=== PATIENT | male | born 1975 | race Caucasian/White ===

== ENCOUNTER 2016-06-22 00:46 | Emergency (ER) | payer MEDICAID, OTHER ==
[~2016-06-22] VITALS: Ht 170.2 cm; Wt 94.0 kg
[~2016-06-22 00:46] MED LIST: CIPR500T4 PO; LORA10CA PO; MECL12.574 PO; METR500T14 PO; MYL80 PO; OMEP10CA4 PO; OMEP20CA16 PO; SENN-53 PO; SIME80TA53 PO; TRAM50TA2 PO
[2016-06-22 00:51] VITALS: Ht 170.2 cm; Wt 94.0 kg
[2016-06-22] MEDS ORDERED: SOD CHLORIDE 0.9% 1,000 ML IV STA (01:07)
[2016-06-22] MEDS ORDERED: ONDANSETRON 4 MG INJ IV STA (01:07)
[2016-06-22] MEDS ORDERED: morphine 4 MG/ML VIAL IV STA (01:07)
[2016-06-22 02:14] LABS: ADD SCAN DIFF NO
[2016-06-22 02:22] LABS: BASOPHIL # 0.1 10^3/ul (0.0-0.1); BASOPHILS % 0.5 % (0.0-2.0); EOSINOPHILS # 0.1 10^3/ul (0.0-0.5); EOSINOPHILS % 1.3 % (0.0-7.0); HEMOGLOBIN 15.2 g/dl (14.0-18.0); LYMPHOCYTES # 2.9 10^3/ul (0.8-2.9); LYMPHOCYTES % 29.2 % (15.0-51.0); MEAN CORPUSCULAR HEMOGLOBIN 28.1 pg (29.0-33.0); MEAN CORPUSCULAR HGB CONC 33.8 g/dl (32.0-37.0); MEAN CORPUSCULAR VOLUME 83.3 fl (82.0-101.0); MEAN PLATELET VOLUME 11.7 fl (7.4-10.4); MONOCYTE # 0.8 10^3/ul (0.3-0.9); MONOCYTES % 7.9 % (0.0-11.0); NEUTROPHILS % 60.7 % (39.0-77.0); PLATELET COUNT 187 10^3/UL (140-415); RED CELL DISTRIBUTION WIDTH 13.2 % (11.5-14.5); WHITE BLOOD COUNT 9.8 10^3/ul (4.8-10.8)
--- NOTE | 2016-06-22 02:22 | RADRPT ---
PROCEDURE: CT Abdomen and Pelvis without contrast. CLINICAL INDICATION: Abdominal pain TECHNIQUE: CT scan of the abdomen and pelvis without contrast was performed on a multidetector hig h-resolution CT scanner. The patient was scanned without intravenous contrast. Coronal and sagittal reformatted images were obtained from the axial source images. Images were reviewed on a high-resol [employer] PACS workstation. The total exam CTDI equals 16.57 mGy and the total exam DLP equals 1074.99 m Gy-cm. One or more the following dose reduction techniques were utilized: Automated exposure control, adjus tment of the mA/ or kV according to patient's size, or use of iterative reconstruction technique. COMPARISON: 01/17/2016 FINDINGS: CT abdomen: Minimal linear atelectasis/fibrosis at lung bases. Small calcified granuloma in left lower lung lobe . The heart size is normal, without pericardial thickening or effusion. The liver is normal in siz e and density without focal mass or intrahepatic biliary dilatation. The spleen is normal in size a nd homogeneous in density. Likely small hiatal hernia. The pancreas as visualized is normal. The g allbladder is contracted. There is no evidence of biliary dilatation. The adrenal glands are symme tric and normal. 2 mm nonobstructing calculus in mid right kidney. No abnormality is seen in the l eft kidney. The aorta is of normal caliber. There is no retroperitoneal lymphadenopathy. The lance hepatis r egion is clear. Diverticula in sigmoid, descending, transverse, ascending colon. CT pelvis: The small bowel loops situated within the pelvis are unremarkable. The pelvic organs are normal. T he pelvic sidewalls and inguinal regions are clear. Diverticula in sigmoid colon. There is wall th ickening in an approximate 5 cm segment of the proximal to mid sigmoid colon with soft tissue strand ing in the adjacent fat consistent with acute diverticulitis. No pericolonic abscess or extralumina l air is seen. No mass, lymphadenopathy, or free fluid is seen. There is no evidence of acute appen dicitis. Small scattered likely bone islands again seen. IMPRESSION: Colonic diverticulosis. Acute diverticulitis in sigmoid colon again seen not as severe as on the pr evious study. Likely small hiatal hernia again seen. Contracted gallbladder not seen on previous st udy. 2 mm nonobstructing calculus in mid right kidney again seen. Please see above. RPTAT: HJES .Ashish Cabral MD, MD Date Time Electronically viewed and signed by .Ashish Cabral MD, on 06/22/2016 02:22 .S/
[2016-06-22 02:34] LABS: ADD UMIC NO; URINE BILIRUBIN (Dip) NEGATIVE (NEGATIVE); URINE BLOOD (Dip) NEGATIVE (NEGATIVE); URINE COLOR LT. YELLOW (YELLOW); URINE GLUCOSE (Dip) NEGATIVE (NEGATIVE); URINE KETONES (Dip) NEGATIVE (NEGATIVE); URINE LEUKOCYTE ESTERASE (Dip) NEGATIVE (NEGATIVE); URINE NITRITE (Dip) NEGATIVE (NEGATIVE); URINE TOTAL PROTEIN (Dip) NEGATIVE (NEGATIVE); URINE UROBILINOGEN (Dip) 0.2 E.U./dL (0.1-1.0)
[2016-06-22 02:38] LABS: ALBUMIN 4.1 g/dl (3.3-4.9)
[2016-06-22 02:39] LABS: POTASSIUM 3.8 mmol/L (3.5-5.1)
[2016-06-22 02:41] LABS: BILIRUBIN,INDIRECT 0.2 mg/dl (0-1.1); BILIRUBIN,TOTAL 0.2 mg/dl (0.2-1.3); CREATININE 1.03 mg/dl (0.61-1.24)
[2016-06-22 02:42] LABS: ALBUMIN/GLOBULIN RATIO 1.24; TOTAL PROTEIN 7.4 g/dl (6.1-8.1)
--- NOTE | 2016-06-22 04:41 | ERD ---
ER Documentation Chief Complaint Date/Time DATE: 06/22/16 TIME: 04:40 Chief Complaint llq abd pain x 2 days HPI This is a 40-year-old male, left lower quadrant abdominal pain for 2 days. Patient has history of diverticulitis. No fevers no chills. 2 episodes of diarrhea. No other current complaints. Pain is mild to moderate intensity with no exacerbating or alleviating factors. ROS All systems reviewed and are negative except as per history of present illness. Medications Home Meds Active Scripts Meclizine Hcl* (Antivert*) 12.5 Mg Tab, 12.5 MG PO Q6H Y for DIZZINESS, #20 TAB Prov:PROJOY CANTRELLC 02/20/16 Omeprazole* (Omeprazole*) 20 Mg Capsule.dr, 20 MG PO DAILY, #30 Prov:PROJOY CANTRELLC 02/20/16 Simethicone (GAS RELIEF) 80 Mg Tab.chew, 80 MG PO every 4 hours, #30 TAB.CHEW Prov:JOY MCNEAL PA-C 02/20/16 Sennosides* (Senna Lax*) 8.6 Mg Tablet, 1 TAB PO BID, #30 TAB Prov:PROJOY CANTRELLC 02/20/16 Simethicone* (Mylicon*) 80 Mg Tab, 80 MG PO Q6H Y for DISTENSION/GAS/BLOATING, # 50 TAB Prov:YUMIKO NELSON 01/19/16 Sennosides* (Senna Lax*) 8.6 Mg Tablet, 1 TAB PO Q12H Y for CONSTIPATION, #30 TAB Prov:YUMIKO NELSON 01/19/16 Metronidazole* (Metronidazole*) 500 Mg Tablet, 500 MG PO Q8, #30 TAB Prov:REGIDOYUMIKO Delgado 01/19/16 Ciprofloxacin Hcl* (Ciprofloxacin Hcl*) 500 Mg Tablet, 500 MG PO BID, #20 TAB Prov:REGYUMIKO RODAS 01/19/16 Omeprazole* (Omeprazole*) 10 Mg Capsule.dr, 10 MG PO DAILY, #30 CAP Prov:REGIDOYUMIKO Delgado 01/19/16 Tramadol HCl (Tramadol HCl) 50 Mg Tablet, 50 MG PO Q4 Y for PAIN, #20 TAB Prov:EDER ESPINAL 01/01/16 Reported Medications Loratadine* (Claritin*) 10 Mg Capsule, 10 MG PO DAILY, CAP 12/06/15 Allergies Allergies: Coded Allergies: No Known Allergy (Unverified , 01/17/16) PMhx/Soc Medical and Surgical Hx: pt denies Surgical Hx History of Surgery: No Anesthesia Reaction: No Hx Neurological Disorder: No Hx Respiratory Disorders: No Hx Cardiac Disorders: No Hx Psychiatric Problems: No Hx Miscellaneous Medical Probl: Yes (Constipation, Gastritis, colitis) Hx Alcohol Use: No Hx Substance Use: No Hx Tobacco Use: No Smoking Status: Former smoker Physical Exam Vitals Vital Signs Date Time Temp Pulse Resp B/P Pulse Ox O2 Delivery O2 Flow Rate FiO2 06/22/16 03:33 97.4 65 17 142/89 100 Room Air 06/22/16 00:51 97.3 73 17 164/105 100 Physical Exam Const: [] Head: Atraumatic Eyes: Normal Conjunctiva ENT: Normal External Ears, Nose and Mouth. Neck: Full range of motion..~ No meningismus. Resp: Clear to auscultation bilaterally Cardio: Regular rate and rhythm, no murmurs Abd: Soft, non tender, non distended. Normal bowel sounds Skin: No petechiae or rashes Back: No midline or flank tenderness Ext: No cyanosis, or edema Neur: Awake and alert Psych: Normal Mood and Affect Result Diagram: 06/22/16 0120 06/22/16 0120 Results 24 hrs Laboratory Tests Test 06/22/16 01:20 White Blood Count 9.810^3/ul Red Blood Count 5.4010^6/ul Hemoglobin 15.2g/dl Hematocrit 45.0% Mean Corpuscular Volume 83.3fl Mean Corpuscular Hemoglobin 28.1pg Mean Corpuscular Hemoglobin Concent 33.8g/dl Red Cell Distribution Width 13.2% Platelet Count 74116^3/UL Mean Platelet Volume 11.7fl Neutrophils % 60.7% Lymphocytes % 29.2% Monocytes % 7.9% Eosinophils % 1.3% Basophils % 0.5% Nucleated Red Blood Cells % 0.0/100WBC Neutrophils # 6.010^3/ul Lymphocytes # 2.910^3/ul Monocytes # 0.810^3/ul Eosinophils # 0.110^3/ul Basophils # 0.110^3/ul Nucleated Red Blood Cells # 0.010^3/ul Urine Color LT. YELLOW Urine Clarity CLEAR Urine pH 6.0 Urine Specific [place] 1.020 Urine Ketones NEGATIVE Urine Nitrite NEGATIVE Urine Bilirubin NEGATIVE Urine Urobilinogen 0.2 E.U./dL Urine Leukocyte Esterase NEGATIVE Urine Hemoglobin NEGATIVE Urine Glucose NEGATIVE% Urine Total Protein NEGATIVE Sodium Level 141mmol/L Potassium Level 3.8mmol/L Chloride Level 101mmol/L Carbon Dioxide Level 25mmol/L Anion Gap 19 Blood Urea Nitrogen 16mg/dl Creatinine 1.03mg/dl Glucose Level 99mg/dl Calcium Level 9.0mg/dl Total Bilirubin 0.2mg/dl Direct Bilirubin 0.00mg/dl Indirect Bilirubin 0.2mg/dl Aspartate Amino Transf (AST/SGOT) 21IU/L Alanine Aminotransferase (ALT/SGPT) 44IU/L Alkaline Phosphatase 75IU/L Total Protein 7.4g/dl Albumin 4.1g/dl Globulin 3.30g/dl Albumin/Globulin Ratio 1.24 Lipase 36U/L Current Medications Medications (Trade) Dose Ordered Sig/Vickie Route PRN Reason Start Time Stop Time Status Last Admin Dose Admin Sodium Chloride (NS) 1,000 ml @ 1,000 mls/hr Q1H STAT IV 06/22/16 01:07 06/22/16 02:06 DC 06/22/16 01:21 Morphine Sulfate (morphine) 4 mg ONCE STAT IV 06/22/16 01:07 06/22/16 01:08 DC 06/22/16 01:21 Ondansetron HCl (Zofran Inj) 4 mg ONCE STAT IV 06/22/16 01:07 06/22/16 01:08 DC 06/22/16 01:21 Procedures/MDM Medical decision-makin male evidence of sigmoid diverticulitis. No obvious perforation. At this point pain is resolved and the patient is well- appearing. Trial of outpatient management will start with Cipro and Flagyl. Follow-up in 8 hours for serial abdominal exams. Return sooner for worsening symptoms. Departure Diagnosis: Primary Impression: Abdominal pain Abdominal location: unspecified location Qualified Code: R10.9 - Abdominal pain, unspecified location Additional Impression: Diverticulitis Diverticulitis site: small intestine Diverticulitis bleeding: without bleeding Diverticulitis complication: without perforation or abscess Qualified Code: K57.12 - Diverticulitis of small intestine without perforation or abscess without bleeding Condition: Stable EDER ESPINAL Jun 22, 2016 04:41
[2016-06-22] MEDS ORDERED: METR500T PO (04:42)
[2016-06-22] MEDS ORDERED: CIPR500T4 PO (04:42)
[2016-06-22 04:54] VITALS: BP 133/82; PULSE 61; RESP 17; TEMP 97.8
== END 2016-06-22 05:32 | disposition home or self-care (01) ==
LOC: E/R 00:46
DX: R10.32 Left lower quadrant pain (principal); K57.12 Diverticulitis of small intestine without perforation or abscess without bleeding; R11.0 Nausea; R40.2142 Coma scale, eyes open, spontaneous, at arrival to emergency department; R40.2252 Coma scale, best verbal response, oriented, at arrival to emergency department; R40.2362 Coma scale, best motor response, obeys commands, at arrival to emergency department
CPT/HCPCS: 74176; 80053; 81003; 83690; 85025; J2270; J2405; J7030; 36415; 96374; 96375

== ENCOUNTER 2016-07-19 04:54 | Emergency (ER) | payer OTHER ==
[~2016-07-19] VITALS: Ht 172.7 cm; Wt 93.0 kg
[~2016-07-19 04:54] MED LIST changes: +METR500T PO
[2016-07-19 04:57] VITALS: Ht 172.7 cm; Wt 93.0 kg
[2016-07-19] MEDS ORDERED: EPINEPHrine 1 MG INJ SC STA (05:08)
[2016-07-19] MEDS ORDERED: METHYLPREDNISOLONE 125 MG INJ ONE (05:11)
[2016-07-19] MEDS ORDERED: DIPHENHYDRAMINE 50 MG INJ ONE (05:11)
[2016-07-19] MEDS ORDERED: FAMOTIDINE 20 MG INJ ONE (05:12)
[2016-07-19] MEDS ORDERED: EPINEPHrine 1 MG INJ ONE (05:12)
[2016-07-19] MEDS ORDERED: FAMOTIDINE 20 MG TAB PO ONE (05:30)
[2016-07-19] MEDS ORDERED: DIPHENHYDRAMINE 50 MG INJ IV ONE (05:30)
[2016-07-19] MEDS ORDERED: METHYLPREDNISOLONE 125 MG INJ IV ONE (05:30)
[2016-07-19] MEDS ORDERED: EPIN0.3P4 INJ (05:53)
[2016-07-19] MEDS ORDERED: BEN25 PO (05:53)
[2016-07-19] MEDS ORDERED: FAMO-18 PO (05:53)
[2016-07-19] MEDS ORDERED: PRED20TA PO (05:53)
--- NOTE | 2016-07-19 06:04 | ERD ---
ER Documentation Chief Complaint Date/Time DATE: 07/19/16 TIME: 05:59 Chief Complaint Allergic reaction Hives and feels like SOB HPI This 40-year-old male presents emergency room with whole-body hives and the feeling that his throat is closing. Less than 2 hours ago he ate shrimp which she does not usually eat. Feels very itchy all over and feels short of breath in the sense that he feels like his throat is closing. This is never happened to him before. ROS All systems reviewed and are negative except as per history of present illness. Medications Home Meds Active Scripts Prednisone* (Prednisone*) 20 Mg Tab, 40 MG PO DAILY for 4 Days, TAB Prov:NILTON SCALES 07/19/16 Famotidine* (Pepcid*) 20 Mg Tablet, 20 MG PO BID for 4 Days, TAB Prov:NILTON SCALES 07/19/16 Diphenhydramine Hcl* (Benadryl*) 25 Mg Cap, 25 MG PO Q8 Y for ITCHING/RASH, #20 TAB Prov:NILTON SCALES 07/19/16 Epinephrine (Epipen 2-Candido) 0.3 Mg/0.3 Ml Pen.injctr, 1 EA INJ ONCE Y for ALLERGIC REACTION, #1 EA Prov:NILTON SCALES 07/19/16 Metronidazole* (Flagyl*) 500 Mg Tablet, 500 MG PO TID for 7 Days, TAB Prov:EDER ESPINAL. 06/22/16 Ciprofloxacin Hcl* (Ciprofloxacin Hcl*) 500 Mg Tablet, 500 MG PO BID for 7 Days , TAB Prov:EDER ESPINAL 06/22/16 Meclizine Hcl* (Antivert*) 12.5 Mg Tab, 12.5 MG PO Q6H Y for DIZZINESS, #20 TAB Prov:JOY MCNEAL PA-C 02/20/16 Omeprazole* (Omeprazole*) 20 Mg Capsule.dr, 20 MG PO DAILY, #30 Prov:JOY MCNEAL PA-C 02/20/16 Simethicone (GAS RELIEF) 80 Mg Tab.chew, 80 MG PO every 4 hours, #30 TAB.CHEW Prov:JOY MCNEAL PA-C 02/20/16 Sennosides* (Senna Lax*) 8.6 Mg Tablet, 1 TAB PO BID, #30 TAB Prov:JOY MCNEAL PA-C 02/20/16 Simethicone* (Mylicon*) 80 Mg Tab, 80 MG PO Q6H Y for DISTENSION/GAS/BLOATING, # 50 TAB Prov:REGIDORYUMIKO 01/19/16 Sennosides* (Senna Lax*) 8.6 Mg Tablet, 1 TAB PO Q12H Y for CONSTIPATION, #30 TAB Prov[facility] 01/19/16 Metronidazole* (Metronidazole*) 500 Mg Tablet, 500 MG PO Q8, #30 TAB Prov:[facility] 01/19/16 Ciprofloxacin Hcl* (Ciprofloxacin Hcl*) 500 Mg Tablet, 500 MG PO BID, #20 TAB Prov:[facility] 01/19/16 Omeprazole* (Omeprazole*) 10 Mg Capsule.dr, 10 MG PO DAILY, #30 CAP Prov:[facility] 01/19/16 Tramadol HCl (Tramadol HCl) 50 Mg Tablet, 50 MG PO Q4 Y for PAIN, #20 TAB Prov:EDER ESPINAL 01/01/16 Reported Medications Loratadine* (Claritin*) 10 Mg Capsule, 10 MG PO DAILY, CAP 12/06/15 Allergies Allergies: Coded Allergies: No Known Allergy (Unverified , 01/17/16) PMhx/Soc History of Surgery: No Anesthesia Reaction: No Hx Neurological Disorder: No Hx Respiratory Disorders: No Hx Cardiac Disorders: No Hx Psychiatric Problems: No Hx Miscellaneous Medical Probl: Yes (Constipation, Gastritis, colitis) Hx Alcohol Use: No Hx Substance Use: No Hx Tobacco Use: No Smoking Status: Never smoker Physical Exam Vitals Vital Signs Date Time Temp Pulse Resp B/P Pulse Ox O2 Delivery O2 Flow Rate FiO2 07/19/16 04:57 98.1 76 22 140/102 99 Physical Exam Const: [] Moderate distress, appears very comfortable Head: Atraumatic Eyes: Normal Conjunctiva ENT: Normal External Ears, Nose and Mouth. Bilateral tonsillar swelling Neck: Full range of motion..~ No meningismus. No visual swelling Resp: Clear to auscultation bilaterally, no wheezes Cardio: Regular rate and rhythm, no murmurs Abd: Soft, non tender, non distended. Normal bowel sounds Skin: Diffuse hives Back: No midline or flank tenderness Ext: No cyanosis, or edema Neur: Awake and alert and oriented 3, no focal deficit Psych: Anxious Results 24 hrs Current Medications Medications (Trade) Dose Ordered Sig/Vickie Route PRN Reason Start Time Stop Time Status Last Admin Dose Admin Epinephrine (EPINEPHrine) 0.3 mg ONCE STAT SC 07/19/16 05:08 07/19/16 05:11 DC 07/19/16 05:14 Diphenhydramine HCl (Benadryl) 50 mg ONCE ONCE IV 07/19/16 05:30 07/19/16 05:31 DC 07/19/16 05:13 Famotidine (Pepcid) 40 mg ONCE ONCE PO 07/19/16 05:30 07/19/16 05:31 DC 07/19/16 05:25 Methylprednisolone Sodium Succinate (Solu-Medrol) 125 mg ONCE ONCE IV 07/19/16 05:30 07/19/16 05:31 DC 07/19/16 05:13 Procedures/MDM Acute anaphylaxis secondary to shrimp allergy. He was given EpiPen, placed on quality assurance monitor chassis with pulse ox,, IV was immediately started he was given 50 mg of IV Benadryl as well as 40 mg of p.o. Pepcid and 125 mg of Solu-Medrol. Within 30 minutes patient's hives disappeared completely and he felt like his throat was no longer closing and that he could breathe normally. He was observed for. An additional hour and 30 minutes. He still felt normal once again. I doubt hereditary angioedema. I think at this point will be safe to discharge him he states he can easily come back to the hospital if he has return of symptoms. Also discharging with 2 EpiPen's in addition to an adrenal , Pepcid and prednisone for 4 days. Critical care time 32 minutes: This includes multiple visits the patient's room and treatment of acute anaphylaxis, use of EpiPen, consistent monitoring, IV Benadryl and Solu-Medrol, consideration of invasive procedures such as preemptive intubation, chart reviewed, discussion with patient. This does not include any billable procedures Departure Diagnosis: Primary Impression: Acute anaphylaxis Additional Impression: Shrimp allergy Condition: Stable Patient Instructions: Anaphylaxis, General, Food Allergy Referrals: [facility] YOU HAVE RECEIVED A MEDICAL SCREENING EXAM AND THE RESULTS INDICATE THAT YOU DO NOT HAVE A CONDITION THAT REQUIRES URGENT TREATMENT IN THE EMERGENCY DEPARTMENT. FURTHER EVALUATION AND TREATMENT OF YOUR CONDITION CAN WAIT UNTIL YOU ARE SEEN IN YOUR DOCTORS OFFICE WITHIN THE NEXT 1-2 DAYS. IT IS YOUR RESPONSIBILITY TO MAKE AN APPOINTMENT FOR FOLOW-UP CARE. IF YOU HAVE A PRIMARY DOCTOR --you should call your primary doctor and schedule an appointment IF YOU DO NOT HAVE A PRIMARY DOCTOR YOU CAN CALL OUR PHYSICIAN REFERRAL HOTLINE AT IF YOU CAN NOT AFFORD TO SEE A PHYSICIAN YOU CAN CHOSE FROM THE FOLLOWING [facility] [address] [facility] [address] [facility] [address] [facility] [address] [facility]. [facility] [address] [facility]. [facility]. [address] Additional Instructions: Call your primary care doctor TOMORROW for an appointment during the next 2-3 days.See the doctor sooner or return here if your condition worsens before your appointment time. NILTON SCALES DO July 19, 2016 06:04
[2016-07-19 07:15] VITALS: BP 119/84; PULSE 80; RESP 20; TEMP 98.5
== END 2016-07-19 07:16 | disposition home or self-care (01) ==
LOC: E/R 04:54
DX: T61.781A Other shellfish poisoning, accidental (unintentional), initial encounter (principal)
CPT/HCPCS: J0171; J1200; J2930; Z7610; 96372; 96374; 96375

== ENCOUNTER 2016-08-30 22:46 | Emergency (ER) | END 2016-08-31 04:39 | disposition home or self-care (01) | DX: K57.12 Diverticulitis of small intestine without perforation or abscess without bleeding (principal) | CPT/HCPCS: 36415; 74177; 80053; 81003; 83690; 85025; J7030; Q9967; Z7502; Z7610 ==

== ENCOUNTER 2017-05-13 11:36 | Emergency (ER) | END 2017-05-13 19:24 | disposition home or self-care (01) ==

== ENCOUNTER 2017-06-26 08:08 | Emergency (ER) | END 2017-06-26 10:06 | disposition home or self-care (01) ==

== ENCOUNTER 2017-08-02 21:03 | Emergency (ER) | END 2017-08-02 22:54 | disposition home or self-care (01) ==

== ENCOUNTER 2017-09-09 21:40 | Emergency (ER) | END 2017-09-10 05:04 | disposition home or self-care (01) ==

== ENCOUNTER 2018-05-20 05:12 | Emergency (ER) | payer SELFPAY ==
[~2018-05-20 05:12] MED LIST changes: +ACET500C5 PO; +DOCU-144 PO; +EPIN0.3P4 INJ; +FAMO-96 PO; +IBUP800T48 PO; -LORA10CA PO; -MECL12.574 PO; -METR500T14 PO; -MYL80 PO; -OMEP10CA4 PO; +ONDA4TAB14 PO; +PRED20TA PO; -SENN-53 PO; -SIME80TA53 PO
[2018-05-20] MEDS ORDERED: CIPR500T4 PO (12:22)
[2018-05-20] MEDS ORDERED: METR500T PO (12:22)
== END 2018-05-20 06:31 | disposition left against medical advice (07) ==
LOC: E/R 05:12
DX: Z53.21 Procedure and treatment not carried out due to patient leaving prior to being seen by health care provider (principal)

== ENCOUNTER 2018-05-20 11:21 | Emergency (ER) | payer OTHER ==
[~2018-05-20] VITALS: Wt 92.6 kg
[2018-05-20 11:23] VITALS: BP 145/99; PULSE 83; RESP 17
[2018-05-20] MEDS ORDERED: METR500T PO (12:22)
[2018-05-20] MEDS ORDERED: CIPR500T4 PO (12:22)
--- NOTE | 2018-05-20 12:27 | ERD ---
ER Documentation Chief Complaint Chief Complaint PT HERE FOR MED REFILL FOR ABX HPI 42-year-old male presenting for medication refill. Patient states he has a long history of diverticulitis. He states that he has been told if he starts feeling the pain in the left lower quadrant told to come to the ER for antibiotics to avoid worsening symptoms. Denies other medical problems. NKDA. Surgical history denies. Social history denies ROS All systems reviewed and are negative except as per history of present illness. Medications Home Meds Active Scripts Metronidazole* (Flagyl*) 500 Mg Tablet, 500 MG PO TID for 7 Days, TAB Prov:ANA VELIZ PA-C 05/20/18 Ciprofloxacin Hcl* (Ciprofloxacin Hcl*) 500 Mg Tablet, 500 MG PO BID for 7 Days, TAB Prov:ANA VELIZ PA-C 05/20/18 Tramadol HCl (Tramadol HCl) 50 Mg Tablet, 50 MG PO Q4 PRN for PAIN, #20 TAB Prov:VICKIE HUGHES 09/10/17 Famotidine* (Pepcid*) 20 Mg Tablet, 20 MG PO DAILY for 30 Days, TAB Prov:VICKIE HUGHES 09/10/17 Acetaminophen* (Tylophen*) 500 Mg Capsule, 1 CAP PO Q6H PRN for PAIN AND OR ELEVATED TEMP, #20 CAP Prov:VICKIE HUGHES 09/10/17 Prednisone* (Prednisone*) 20 Mg Tab, 40 MG PO DAILY for 4 Days, TAB Prov:JO HARLEY MD 08/02/17 Epinephrine (Epipen 2-Candido) 0.3 Mg/0.3 Ml Pen.injctr, 1 EA INJ ONCE PRN for ALLERGIC REACTION, #2 EA Prov:JO HARLEY MD 08/02/17 Ondansetron (Ondansetron Odt) 4 Mg Tab.rapdis, 4 MG PO Q6H PRN for NAUSEA AND/OR VOMITING, #10 TAB Prov:MANDEEP SAENZ PA-C 06/26/17 Docusate Sodium* (Colace*) 100 Mg Capsule, 100 MG PO TID, #30 CAP Prov:MANDEEP SAENZ PA-C 06/26/17 Omeprazole* (Omeprazole*) 20 Mg Capsule.dr, 20 MG PO BID, #20 Prov:MANDEEP SAENZ Lex KLINE 06/26/17 Metronidazole* (Flagyl*) 500 Mg Tablet, 500 MG PO TID for 7 Days, TAB Prov:MANDEEP SAENZ Lex KLINE 06/26/17 Ciprofloxacin Hcl* (Ciprofloxacin Hcl*) 500 Mg Tablet, 500 MG PO BID for 7 Days, TAB Prov:MANDEEP SAENZ Lex KLINE 06/26/17 Tramadol HCl (Tramadol HCl) 50 Mg Tablet, 50 MG PO Q6, #40 TAB Prov:BAILEY SILVASTBLAKES Val. DO 05/13/17 Ibuprofen* (Motrin*) 800 Mg Tab, 800 MG PO Q6H PRN for PAIN AND OR ELEVATED TEMP, #30 TAB Prov:BAILEY SILVASTBLAKES ATea DO 05/13/17 Allergies Allergies: Uncoded Allergies: SHELLFISH (Allergy, Severe, 06/26/17) shellfish,lobsters PMhx/Soc History of Surgery: No Anesthesia Reaction: No Hx Neurological Disorder: No Hx Respiratory Disorders: No Hx Cardiac Disorders: No Hx Psychiatric Problems: No Hx Miscellaneous Medical Probl: Yes (diverticulitis) Hx Alcohol Use: No Hx Substance Use: No Hx Tobacco Use: No FmHx Family History: No diabetes, No coronary disease, No other Physical Exam Vitals Vital Signs Date Temp Pulse Resp B/P (MAP) Pulse Ox O2 O2 Flow FiO2 Time Delivery Rate 05/20/18 97.4 83 17 145/99 98 11:23 (114) Physical Exam GENERAL: The patient is well-appearing, well-nourished, in no acute distress CHEST: Clear to auscultation bilaterally. There are no rales, wheezes or rhonchi. HEART: Regular rate and rhythm. No murmurs, clicks, rubs or gallops. No S3 or S4. ABDOMEN:Soft, tender palpation left lower quadrant with no rebound tenderness and nondistended. Good bowel sounds. No rebound or guarding. No gross peritonitis. No gross organomegaly or masses. Procedures/MDM MDM: 42-year-old male presenting with pain to left lower quadrant. Patient has a history of diverticulitis. I will treat with antibiotics with the strict understanding that if patient's symptoms worsen or change to come to the ER for imaging. Patient is told if symptoms change or worsen to return sooner. Patient's vitals are stable. All questions answered at discharge Departure Diagnosis: Primary Impression: Encounter for medication refill Condition: Stable Patient Instructions: Taking Medicine Safely Referrals: [facility] (PCP) Additional Instructions: FOLLOW UP WITH YOUR PRIMARY CARE PHYSICIAN TOMORROW.Return to this facility if you are not improving as expected. ANA VELIZ PA-C May 20, 2018 12:27
== END 2018-05-20 12:32 | disposition home or self-care (01) ==
LOC: FTE 11:21
DX: Z76.0 Encounter for issue of repeat prescription (principal)
CPT/HCPCS: 99281

== ENCOUNTER 2018-07-22 02:25 | Emergency (ER) | payer OTHER ==
[~2018-07-22] VITALS: Wt 90.9 kg
[2018-07-22] MEDS ORDERED: morphine 4 MG/ML VIAL IV STA (02:43)
[2018-07-22] MEDS ORDERED: ONDANSETRON 4 MG INJ IV STA (02:43)
--- NOTE | 2018-07-22 05:02 | ERD ---
ER Documentation Chief Complaint Chief Complaint COUGH, AP X'S 2 DAYS; HX DIVERTICULITIS HPI This is a 42-year-old male presents for evaluation of cough x2 days, patient endorses URI-like symptoms. Additionally has a history of recurrent diverticulitis, and he has been having pain since Wednesday, which is now about 4 days. He has had nausea but no vomiting. His pain feels similar to prior episodes where he has had diverticulitis. He has no chest pain or shortness of breath. ROS All systems reviewed and are negative except as per history of present illness. Medications Home Meds Active Scripts Metronidazole* (Flagyl*) 500 Mg Tablet, 500 MG PO TID for 10 Days, TAB Prov:EMERALD TEAGUE MD 07/22/18 Amoxicillin/Potassium Clav (Amox-Clav 875-125 mg Tablet) 875-125 mg Tab, 1 TAB PO BID for 10 Days, #20 TAB Prov:EMERALD TEAGUE MD 07/22/18 Omeprazole* (Omeprazole*) 20 Mg Capsule.dr, 20 MG PO BID, #20 Prov:MANDEEP SAENZ PA-C 06/26/17 Discontinued Scripts Metronidazole* (Flagyl*) 500 Mg Tablet, 500 MG PO TID for 7 Days, TAB Prov:ANA VELIZ PA-C 05/20/18 Ciprofloxacin Hcl* (Ciprofloxacin Hcl*) 500 Mg Tablet, 500 MG PO BID for 7 Days, TAB Prov:ANA VELIZ PA-C 05/20/18 Tramadol HCl (Tramadol HCl) 50 Mg Tablet, 50 MG PO Q4 PRN for PAIN, #20 TAB Prov:VICKIE HUGHES 09/10/17 Famotidine* (Pepcid*) 20 Mg Tablet, 20 MG PO DAILY for 30 Days, TAB Prov:VICKIE HUGHES 09/10/17 Acetaminophen* (Tylophen*) 500 Mg Capsule, 1 CAP PO Q6H PRN for PAIN AND OR ELEVATED TEMP, #20 CAP Prov:VICKIE HUGHES 09/10/17 Prednisone* (Prednisone*) 20 Mg Tab, 40 MG PO DAILY for 4 Days, TAB Prov:JO HARLEY MD 08/02/17 Epinephrine (Epipen 2-Candido) 0.3 Mg/0.3 Ml Pen.injctr, 1 EA INJ ONCE PRN for ALLERGIC REACTION, #2 EA Prov:JO HARLEY MD 08/02/17 Ondansetron (Ondansetron Odt) 4 Mg Tab.rapdis, 4 MG PO Q6H PRN for NAUSEA AND/OR VOMITING, #10 TAB Prov:MANDEEP SAENZ PA-C 06/26/17 Docusate Sodium* (Colace*) 100 Mg Capsule, 100 MG PO TID, #30 CAP Prov:MANDEEP SAENZ PA-C 06/26/17 Metronidazole* (Flagyl*) 500 Mg Tablet, 500 MG PO TID for 7 Days, TAB Prov:MANDEEP SAENZ PA-C 06/26/17 Ciprofloxacin Hcl* (Ciprofloxacin Hcl*) 500 Mg Tablet, 500 MG PO BID for 7 Days, TAB Prov:MANDEEP SAENZ PA-C 06/26/17 Tramadol HCl (Tramadol HCl) 50 Mg Tablet, 50 MG PO Q6, #40 TAB Prov:BAILEY SILVASTBLAKES A. DO 05/13/17 Ibuprofen* (Motrin*) 800 Mg Tab, 800 MG PO Q6H PRN for PAIN AND OR ELEVATED TEMP, #30 TAB Prov:LEKKOS,APOSTOLOS A. DO 05/13/17 Allergies Allergies: Coded Allergies: shellfish derived (Verified Allergy, Unknown, 07/22/18) PMhx/Soc Medical and Surgical Hx: pt denies Surgical Hx History of Surgery: No Anesthesia Reaction: No Hx Neurological Disorder: No Hx Respiratory Disorders: No Hx Cardiac Disorders: No Hx Psychiatric Problems: No Hx Miscellaneous Medical Probl: Yes (diverticulitis, gastritis) Hx Alcohol Use: No Hx Substance Use: No Hx Tobacco Use: No Smoking Status: Never smoker Physical Exam Vitals Vital Signs Date Temp Pulse Resp B/P (MAP) Pulse Ox O2 O2 Flow FiO2 Time Delivery Rate 07/22/18 86 15 114/84 99 Room Air 04:50 (94) 07/22/18 100.0 93 18 137/92 99 02:27 (107) Physical Exam Const: No acute distress Head: Atraumatic Eyes: Normal Conjunctiva ENT: Normal External Ears, left TM is clear, no erythema or bulging nose and Mouth. Oropharynx is injected, no exudates Neck: Full range of motion. No meningismus. Resp: Clear to auscultation bilaterally Cardio: Regular rate and rhythm, no murmurs Abd: Soft, non tender, non distended. Normal bowel sounds Skin: No petechiae or rashes Back: No midline or flank tenderness Ext: No cyanosis, or edema Neur: Awake and alert Psych: Normal Mood and Affect Result Diagram: 07/22/18 0258 07/22/18 0258 Results 24 hrs Laboratory Tests Test 07/22/18 02:58 White Blood Count 8.8 10^3/ul Red Blood Count 5.18 10^6/ul Hemoglobin 14.7 g/dl Hematocrit 43.3 % Mean Corpuscular Volume 83.6 fl Mean Corpuscular Hemoglobin 28.4 pg Mean Corpuscular Hemoglobin Concent 33.9 g/dl Red Cell Distribution Width 13.1 % Platelet Count 176 10^3/UL Mean Platelet Volume 11.1 fl Immature Granulocytes % 0.300 % Neutrophils % 63.9 % Lymphocytes % 22.7 % Monocytes % 11.9 % Eosinophils % 0.7 % Basophils % 0.5 % Nucleated Red Blood Cells % 0.0 /100WBC Immature Granulocytes # 0.030 10^3/ul Neutrophils # 5.6 10^3/ul Lymphocytes # 2.0 10^3/ul Monocytes # 1.0 10^3/ul Eosinophils # 0.1 10^3/ul Basophils # 0.0 10^3/ul Nucleated Red Blood Cells # 0.0 10^3/ul Urine Color YELLOW Urine Clarity CLEAR Urine pH 6.0 Urine Specific [place] 1.017 Urine Ketones NEGATIVE mg/dL Urine Nitrite NEGATIVE mg/dL Urine Bilirubin NEGATIVE mg/dL Urine Urobilinogen NEGATIVE mg/dL Urine Leukocyte Esterase TRACE Laureen/ul Urine Microscopic RBC 0 /HPF Urine Microscopic WBC 0 /HPF Urine Bacteria FEW /HPF Urine Hemoglobin NEGATIVE mg/dL Urine Glucose NEGATIVE mg/dL Urine Total Protein NEGATIVE mg/dl Sodium Level 142 mmol/L Potassium Level 3.8 mmol/L Chloride Level 105 mmol/L Carbon Dioxide Level 29 mmol/L Anion Gap 8 Blood Urea Nitrogen 19 mg/dl Creatinine 1.12 mg/dl Est Glomerular Filtrat Rate mL/min > 60 mL/min Glucose Level 109 mg/dl Calcium Level 9.1 mg/dl Total Bilirubin 0.4 mg/dl Direct Bilirubin 0.00 mg/dl Indirect Bilirubin 0.4 mg/dl Aspartate Amino Transf (AST/SGOT) 27 IU/L Alanine Aminotransferase (ALT/SGPT) 37 IU/L Alkaline Phosphatase 89 IU/L Total Protein 7.8 g/dl Albumin 4.2 g/dl Globulin 3.60 g/dl Albumin/Globulin Ratio 1.16 Lipase 40 U/L Current Medications Medications Dose Sig/Vickie Start Time Status Last (Trade) Ordered Route PRN Stop Time Admin Dose Reason Admin Morphine 4 mg ONCE STAT 07/22/18 DC Sulfate IV 02:43 (morphine) 07/22/18 02:45 Ondansetron 4 mg ONCE STAT 07/22/18 DC HCl (Zofran IV 02:43 Inj) 07/22/18 02:45 Procedures/MDM 42-year-old male presents for evaluation of abdominal pain, with prior history of diverticulitis. His CT abdomen pelvis showed sigmoid diverticulitis, patient stated that his pain felt much better, initially being about a 6, and improving 2 out of 10, and wished to be discharged home. He stated that he felt very comfortable being treated as an outpatient, as this is how he has usually manages symptoms. I provided him a prescription for Augmentin and Flagyl. Additionally he also had URI-like symptoms, which are most likely unrelated to his diverticulitis, strict return precautions were given to return for any p.o. intolerance, vomiting, or any other worsening symptoms. At discharge patient was in no distress. Departure Diagnosis: Primary Impression: Abdominal pain Abdominal location: unspecified location Qualified Codes: R10.9 - Unspecified abdominal pain Additional Impression: Diverticulitis Condition: Stable EMERALD TEAGUE MD July 22, 2018 05:02
[2018-07-22] MEDS ORDERED: METR500T PO (05:03)
[2018-07-22] MEDS ORDERED: AMOX1TAB10 PO (05:03)
[2018-07-22 05:14] VITALS: BP 100/66; PULSE 84; RESP 21
--- NOTE | 2018-07-22 14:22 | RADRPT ---
Vent Rate: 76 bpm RR Interval: 0 msec NM Interval: 150 msec QRS Duration: 84 msec QT Interval: 372 msec QTC Interval: 418 msec P-R-T [place]: 38 - 41 - 17 degrees Normal sinus rhythm Normal ECG Electronically Signed By: [facility]
== END 2018-07-22 05:15 | disposition home or self-care (01) ==
LOC: E/R 02:25
DX: K57.32 Diverticulitis of large intestine without perforation or abscess without bleeding (principal); R40.2142 Coma scale, eyes open, spontaneous, at arrival to emergency department; R40.2362 Coma scale, best motor response, obeys commands, at arrival to emergency department; R40.2252 Coma scale, best verbal response, oriented, at arrival to emergency department
CPT/HCPCS: 36415; 74176; 80053; 81001; 83690; 85025; 93005; Z7502

== ENCOUNTER 2018-07-26 08:32 | Emergency (ER) | payer OTHER ==
[~2018-07-26] VITALS: Ht 167.6 cm; Wt 88.0 kg
[~2018-07-26 08:32] MED LIST changes: -ACET500C5 PO; +AMOX1TAB10 PO; -CIPR500T4 PO; -DOCU-144 PO; -EPIN0.3P4 INJ; -FAMO-96 PO; -IBUP800T48 PO; -ONDA4TAB14 PO; -PRED20TA PO; -TRAM50TA2 PO
[2018-07-26 08:35] VITALS: Ht 167.6 cm; Wt 88.0 kg
[2018-07-26] MEDS ORDERED: ONDANSETRON 4 MG INJ IV STA (08:47)
[2018-07-26] MEDS ORDERED: KETOROLAC 15 MG INJ IV STA (08:47)
[2018-07-26] MEDS ORDERED: SOD CHLORIDE 0.9% 1,000 ML IV STA (08:47)
[2018-07-26] MEDS ORDERED: LIDOCAINE/MYLANTA 40 ML BTL PO STA (08:49)
[2018-07-26] MEDS ORDERED: FAMOTIDINE 20 MG TAB PO STA (08:49)
[2018-07-26] MEDS ORDERED: BELLADONNA/PHENOBARBITAL TAB PO STA (08:49)
--- NOTE | 2018-07-26 08:53 | ERD ---
ER Documentation Chief Complaint Chief Complaint lower abdominal pain, constipation started 2 days ago HPI This is a 42-year-old man complaining of left lower quadrant abdominal pain and continued diarrhea after being diagnosed with acute diverticulitis about 4 days ago. He states he lost his prescriptions for both metronidazole and Augmentin that were given to him at discharge so he was only able to use an prescription of metronidazole he had leftover from his last episode of diverticulitis. He denies blood per rectum or melena, no chest pain or shortness of breath, no loss of consciousness. Patient has had a few episodes of loose stools daily since discharge he denies fevers or chills ROS All systems reviewed and are negative except as per history of present illness. Medications Home Meds Active Scripts Ibuprofen* (Motrin*) 600 Mg Tab, 600 MG PO Q8 PRN for PAIN AND/OR INFLAMMATION, #30 TAB Prov:EMERALD COON MD 07/26/18 Tramadol HCl (Tramadol HCl) 50 Mg Tablet, 50 MG PO TID, #30 TAB Prov:EMERALD COON MD 07/26/18 Metronidazole* (Flagyl*) 500 Mg Tablet, 500 MG PO TID for 10 Days, TAB Prov:EMERALD COON MD 07/26/18 Amoxicillin/Potassium Clav (Amox-Clav 875-125 mg Tablet) 875-125 mg Tab, 1 TAB PO BID for 10 Days, #20 TAB Prov:EMERALD COON MD 07/26/18 Reported Medications Omeprazole* (Omeprazole*) 20 Mg Capsule., 20 MG PO DAILY PRN for NEEDED, #30 CAP 07/26/18 Discontinued Scripts Metronidazole* (Flagyl*) 500 Mg Tablet, 500 MG PO TID for 10 Days, TAB Prov:EMERALD TEAGUE MD 07/22/18 Amoxicillin/Potassium Clav (Amox-Clav 875-125 mg Tablet) 875-125 mg Tab, 1 TAB PO BID for 10 Days, #20 TAB Prov:EMERALD TEAGUE MD 07/22/18 Omeprazole* (Omeprazole*) 20 Mg Capsule., 20 MG PO BID, #20 Prov:MANDEEP SAENZ PA-C 06/26/17 Metronidazole* (Flagyl*) 500 Mg Tablet, 500 MG PO TID for 7 Days, TAB Prov:ANA VELIZ PA-C 05/20/18 Ciprofloxacin Hcl* (Ciprofloxacin Hcl*) 500 Mg Tablet, 500 MG PO BID for 7 Days, TAB Prov:ANA VELIZ PA-C 05/20/18 Tramadol HCl (Tramadol HCl) 50 Mg Tablet, 50 MG PO Q4 PRN for PAIN, #20 TAB Prov:VICKIE HUGHES 09/10/17 Famotidine* (Pepcid*) 20 Mg Tablet, 20 MG PO DAILY for 30 Days, TAB Prov:VICKIE HUGHES 09/10/17 Acetaminophen* (Tylophen*) 500 Mg Capsule, 1 CAP PO Q6H PRN for PAIN AND OR ELEVATED TEMP, #20 CAP Prov:VICKIE HUGHES 09/10/17 Prednisone* (Prednisone*) 20 Mg Tab, 40 MG PO DAILY for 4 Days, TAB Prov:JO HARLEY MD 08/02/17 Epinephrine (Epipen 2-Candido) 0.3 Mg/0.3 Ml Pen.injctr, 1 EA INJ ONCE PRN for ALLERGIC REACTION, #2 EA Prov:OJ HARLEY MD 08/02/17 Ondansetron (Ondansetron Odt) 4 Mg Tab.rapdis, 4 MG PO Q6H PRN for NAUSEA AND/OR VOMITING, #10 TAB Prov:MANDEEP SAENZ PA-C 06/26/17 Docusate Sodium* (Colace*) 100 Mg Capsule, 100 MG PO TID, #30 CAP Prov:MANDEEP SAENZ PA-C 06/26/17 Metronidazole* (Flagyl*) 500 Mg Tablet, 500 MG PO TID for 7 Days, TAB Prov:MANDEEP SAENZ PA-C 06/26/17 Ciprofloxacin Hcl* (Ciprofloxacin Hcl*) 500 Mg Tablet, 500 MG PO BID for 7 Days, TAB Prov:MANDEEP SAENZ PA-C 06/26/17 Tramadol HCl (Tramadol HCl) 50 Mg Tablet, 50 MG PO Q6, #40 TAB Prov:JAMES SILVA DO 05/13/17 Ibuprofen* (Motrin*) 800 Mg Tab, 800 MG PO Q6H PRN for PAIN AND OR ELEVATED TEMP, #30 TAB Prov:LEKKOSJAMES DO 05/13/17 Allergies Allergies: Coded Allergies: shellfish derived (Verified Allergy, Unknown, 07/26/18) PMhx/Soc History of Surgery: No Anesthesia Reaction: No Hx Neurological Disorder: No Hx Respiratory Disorders: No Hx Cardiac Disorders: No Hx Psychiatric Problems: No Hx Miscellaneous Medical Probl: Yes (diverticulitis, gastritis) Hx Alcohol Use: No Hx Substance Use: No Hx Tobacco Use: No Smoking Status: Never smoker Physical Exam Vitals Vital Signs Date Temp Pulse Resp B/P (MAP) Pulse Ox O2 O2 Flow FiO2 Time Delivery Rate 07/26/18 53 18 112/82 99 Room Air 11:00 (92) 07/26/18 98.8 79 16 146/89 98 08:35 (108) Physical Exam GENERAL: Well-developed, well-nourished, well-hydrated, in no apparent distress, looks nontoxic in appearance CARDIAC: Regular rate and rhythm, no murmurs rubs or gallops LUNGS: Clear bilaterally no wheezing crackles or stridor ABDOMEN: Soft nontender, no guarding, no rigidity, no rebound, no psoas sign no obturator sign. SKIN: Warm and dry to touch, no abrasions, contusions, or hematomas, no lacerations, no ecchymosis, no target lesions, and without ulcers EXTREMITIES: No clubbing cyanosis or edema, calves are bilaterally symmetrical, no Homans sign, no popliteal cord sign. Distal pulses equal and bilateral PSYCH: Normal affect without agitation or irritability Result Diagram: 07/26/18 0847 07/26/18 0847 Results 24 hrs Laboratory Tests Test 07/26/18 08:47 White Blood Count 10.5 10^3/ul Red Blood Count 5.37 10^6/ul Hemoglobin 15.0 g/dl Hematocrit 44.4 % Mean Corpuscular Volume 82.7 fl Mean Corpuscular Hemoglobin 27.9 pg Mean Corpuscular Hemoglobin Concent 33.8 g/dl Red Cell Distribution Width 13.2 % Platelet Count 203 10^3/UL Mean Platelet Volume 10.9 fl Immature Granulocytes % 0.400 % Neutrophils % 65.6 % Lymphocytes % 24.7 % Monocytes % 7.8 % Eosinophils % 1.0 % Basophils % 0.5 % Nucleated Red Blood Cells % 0.0 /100WBC Immature Granulocytes # 0.040 10^3/ul Neutrophils # 6.9 10^3/ul Lymphocytes # 2.6 10^3/ul Monocytes # 0.8 10^3/ul Eosinophils # 0.1 10^3/ul Basophils # 0.1 10^3/ul Nucleated Red Blood Cells # 0.0 10^3/ul Sodium Level 140 mmol/L Potassium Level 3.7 mmol/L Chloride Level 104 mmol/L Carbon Dioxide Level 27 mmol/L Anion Gap 9 Blood Urea Nitrogen 17 mg/dl Creatinine 1.02 mg/dl Est Glomerular Filtrat Rate mL/min > 60 mL/min Glucose Level 105 mg/dl Calcium Level 8.8 mg/dl Current Medications Medications Dose Sig/Vickie Start Time Status Last (Trade) Ordered Route PRN Stop Time Admin Dose Reason Admin Sodium 1,000 ml @ Q1H STAT 07/26/18 DC 07/26/18 Chloride 1,000 mls/hr IV 08:47 09:10 07/26/18 09:46 Ondansetron 4 mg ONCE STAT 07/26/18 DC 07/26/18 HCl (Zofran IV 08:47 09:10 Inj) 07/26/18 08:53 Ketorolac 15 mg ONCE STAT 07/26/18 DC 07/26/18 Tromethamine IV 08:47 09:10 (Toradol) 07/26/18 08:51 150 ml @ ONCE ONCE 07/26/18 DC 07/26/18 Levofloxacin/ 100 mls/hr IVPB 09:00 09:10 Dextrose 07/26/18 10:29 500 mg ONCE ONCE 07/26/18 DC 07/26/18 Metronidazole PO 09:00 09:15 (Flagyl) 07/26/18 09:01 Famotidine 20 mg ONCE STAT 07/26/18 DC 07/26/18 (Pepcid) PO 08:49 09:10 07/26/18 08:51 40 ml ONCE STAT 07/26/18 DC 07/26/18 Miscellaneous PO 08:49 09:09 Medication 07/26/18 08:51 (Gi Cocktail (2)) Belladonna/ 2 tab ONCE STAT 07/26/18 DC 07/26/18 Phenobarbital PO 08:49 09:10 () 07/26/18 08:51 Procedures/MDM IV line was established 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 Patient was afebrile I administered 1 L normal saline IV, GI cocktail p.o., famotidine 20 mg p.o., Toradol 15 mg IV, Zofran 4 mg IV, Flagyl 500 mg p.o., and levofloxacin 750 mg IV CBC and electrolytes were normal Patient feels much better and looks well, abdominal exam was repeated by me and remains normal, he prefers outpatient management and it does not seem that his disease process has progressed so I can manage him as an outpatient with Augmentin and Flagyl, I recommended strict medication compliance Differential diagnoses considered, included but not limited to acute coronary syndrome, pulmonary embolism, aortic dissection, abdominal aortic aneurysm, sepsis, stroke, meningitis, encephalitis, pneumonia, appendicitis, cholecystitis, bowel obstruction, pyelonephritis, nephrolithiasis, cystitis, as well as metabolic, hematologic, and electrolyte abnormalities. As well as ab scess, cellulitis, fractures, and dislocations. Patient feels much better at this time, and vital signs are normal, symptoms have improved. I did give strict instructions to return to the ED if symptoms continue or worsen, patient will otherwise follow-up with primary care physician. Patient understood instructions and agreed to plan. Disclaimer: Inadvertent spelling and grammatical errors are likely due to EHR/dictation software use and do not reflect on the overall quality of patient care. Also, please note that the electronic time recorded on this note does not necessarily reflect the actual time of the patient encounter. Departure Diagnosis: Primary Impression: Diverticulitis Additional Impression: Noncompliance with medication regimen Condition: EMERALD Hong MD July 26, 2018 08:53
[2018-07-26] MEDS ORDERED: LEVOFLOXACIN 750MG/D5W (PMX) 150 ML IVPB ONE (09:00)
[2018-07-26] MEDS ORDERED: metroNIDAZOLE 500 MG TAB PO ONE (09:00)
[2018-07-26] MEDS ORDERED: METR500T PO (10:01)
[2018-07-26] MEDS ORDERED: IBUP-1542 PO (10:01)
[2018-07-26] MEDS ORDERED: AMOX1TAB10 PO (10:01)
[2018-07-26] MEDS ORDERED: TRAM50TA2 PO (10:01)
[2018-07-26] MEDS ORDERED: OMEP20CA16 PO (10:08)
[2018-07-26 11:00] VITALS: BP 112/82; PULSE 53; RESP 18
== END 2018-07-26 11:10 | disposition home or self-care (01) ==
LOC: E/R 08:32
DX: K57.92 Diverticulitis of intestine, part unspecified, without perforation or abscess without bleeding (principal); Z91.14 Patient's other noncompliance with medication regimen
CPT/HCPCS: 36415; 80048; 85025; 96374; 96375; J1885; J1956; J2405; J7030; Z7502; Z7610